=== PATIENT | male | born 1990 | race Caucasian/White ===

== ENCOUNTER 2019-03-14 18:49 | Emergency (ER) | payer SELFPAY ==
[~2019-03-14] VITALS: Ht 175.3 cm; Wt 200.0 kg
[2019-03-14 19:04] VITALS: BP 141/75
== END 2019-03-14 22:30 | disposition left against medical advice (07) ==
LOC: EMS 18:51
DX: R51 Headache (principal); Z53.21 Procedure and treatment not carried out due to patient leaving prior to being seen by health care provider

== ENCOUNTER 2019-03-31 08:54 | Emergency (ER) | payer MEDICAID ==
[~2019-03-31] VITALS: Ht 177.8 cm; Wt 77.3 kg
[2019-03-31] MEDS ORDERED: ESCI10TA PO (09:17)
[2019-03-31] MEDS ORDERED: GABA-531 PO (09:17)
[2019-03-31 10:21] VITALS: BP 129/66
== END 2019-03-31 10:27 | disposition home or self-care (01) ==
LOC: EMS 08:55
DX: R45.851 Suicidal ideations (principal); F15.10 Other stimulant abuse, uncomplicated; F32.9 Major depressive disorder, single episode, unspecified; F12.90 Cannabis use, unspecified, uncomplicated; F19.90 Other psychoactive substance use, unspecified, uncomplicated

== ENCOUNTER 2022-04-11 01:45 | Inpatient (IN) | payer MEDICAID, OTHER ==
[~2022-04-11] VITALS: Ht 175.3 cm; Wt 77.3 kg
[~2022-04-11 01:45] MED LIST: ESCI-8 PO; GABA-1181 PO
[2022-04-11] MEDS ORDERED: SODIUM CHLORIDE 0.9% 1,000 ML IV ONE (04:30)
[2022-04-11] MEDS ORDERED: ACETAMINOPHEN 325 MG TABLET PO PRN (05:30)
[2022-04-11] MEDS ORDERED: ONDANSETRON HCL 4 MG/2 ML VIAL IVP PRN (05:30)
[2022-04-11] MEDS: CefTRIAXone 1 GM/DEXTROSE 50 ML IV SCH (05:36)
[2022-04-11] MEDS: HEPARIN SODIUM,PORCINE 5,000 UNITS/ML VIAL SQ SCH ×3 (08:00→23:38)
[2022-04-11 08:52] LABS: COVID AG,FIA SOURCE NASOPHARYNGEAL
[2022-04-11 10:15] VITALS: BP 110/59
[2022-04-11] MEDS: RINGERS SOLUTION,LACTATED 1,000 ML IV SCH ×3 (11:37→23:38)
[2022-04-11] MEDS: ONDANSETRON HCL 4 MG/2 ML VIAL IVP PRN (16:15)
[2022-04-11] MEDS: LORazepam 2 MG/ML VIAL IVP PRN ×2 (16:16→21:35)
[2022-04-11 16:26] VITALS: BP 114/60
[2022-04-11 19:50] VITALS: BP 115/61
[2022-04-12 03:48] VITALS: BP 127/75
[2022-04-12] MEDS: CefTRIAXone 1 GM/DEXTROSE 50 ML IV SCH (05:59)
[2022-04-12 06:45] LABS: BASOPHILS % (AUTO) 0.1 % (0.0-2.0); EOSINOPHILS % (AUTO) 0.1 % (1.0-6.0); HEMATOCRIT 35.4 % (41-53); HEMOGLOBIN 12.2 g/dL (13.5-17.5); LYMPHOCYTES # (AUTO) 1.2 K/uL (1.0-4.8); LYMPHOCYTES % (AUTO) 11.7 % (22.0-44.0); MEAN CORPUSCULAR HEMOGLOBIN 27.5 pg (26.0-34.0); MEAN CORPUSCULAR HGB CONC 34.4 G/dL (31.0-37.0); MEAN CORPUSCULAR VOLUME 80 fL (80-100); MONOCYTES # (AUTO) 0.4 K/uL (0.1-1.0); MONOCYTES % (AUTO) 3.4 % (2.0-9.0); NEUTROPHILS # (AUTO) 8.7 K/uL (1.8-7.7); NEUTROPHILS % (AUTO) 84.7 % (40.0-70.0); PLATELET COUNT (AUTO) 307 K/uL (150-450); RED BLOOD CELL COUNT(AUTO) 4.44 MIL/uL (4.50-5.90); RED CELL DISTRIBUTION WIDTH 13.2 % (11.5-14.5)
[2022-04-12 06:58] LABS: ALANINE AMINOTRANSFERASE 20 U/L (12-78); ALBUMIN 2.5 g/dL (3.4-5.0); ALKALINE PHOSPHATASE 64 U/L (46-116); ANION GAP 12 mmol/L (8-16); ASPARTATE AMINOTRANSFERASE 14 U/L (15-37); BILIRUBIN,TOTAL 0.4 mg/dL (0.1-1.0); CALCIUM, TOTAL 8.6 mg/dL (8.8-10.5); CARBON DIOXIDE 24 mmol/L (22-29); CHLORIDE 99 mmol/L (98-107); CREATININE 0.47 mg/dL (0.60-1.30); GLUCOSE,RANDOM 99 mg/dL (70-110); POTASSIUM 3.1 mmol/L (3.5-5.1); SODIUM SERUM 135 mmol/L (136-145); TOTAL PROTEIN, SERUM 6.9 g/dL (6.4-8.2); UREA NITROGEN, BLOOD 12 mg/dL (7-18)
[2022-04-12 07:04] LABS: GLOMERULAR FILTR. RATE CALC > 60 mL/min (>60)
[2022-04-12] MEDS: HEPARIN SODIUM,PORCINE 5,000 UNITS/ML VIAL SQ SCH ×3 (08:00→23:25)
[2022-04-12 08:14] VITALS: BP 131/77
[2022-04-12] MEDS: RINGERS SOLUTION,LACTATED 1,000 ML IV SCH ×2 (14:11→23:25)
[2022-04-12] MEDS: LORazepam 2 MG/ML VIAL IVP PRN ×2 (14:30→21:29)
[2022-04-12 18:51] VITALS: BP 122/70
[2022-04-12 19:44] VITALS: BP 110/50
[2022-04-12] MEDS: ONDANSETRON HCL 4 MG/2 ML VIAL IVP PRN ×2 (21:12→21:29)
[2022-04-12] MEDS: DOXYCYCLINE HYCLATE 100 MG TABLET PO SCH (23:25)
[2022-04-13] MEDS: LORazepam 2 MG/ML VIAL IVP PRN ×2 (01:45→05:41)
[2022-04-13 04:00] VITALS: BP 123/66
[2022-04-13] MEDS: CefTRIAXone 1 GM/DEXTROSE 50 ML IV SCH (05:41)
[2022-04-13 06:36] LABS: BASOPHILS % (AUTO) 0.1 % (0.0-2.0); EOSINOPHILS % (AUTO) 0.1 % (1.0-6.0); HEMATOCRIT 35.4 % (41-53); HEMOGLOBIN 11.9 g/dL (13.5-17.5); LYMPHOCYTES # (AUTO) 1.9 K/uL (1.0-4.8); LYMPHOCYTES % (AUTO) 18.4 % (22.0-44.0); MEAN CORPUSCULAR HEMOGLOBIN 27.1 pg (26.0-34.0); MEAN CORPUSCULAR HGB CONC 33.6 G/dL (31.0-37.0); MEAN CORPUSCULAR VOLUME 81 fL (80-100); MONOCYTES # (AUTO) 0.4 K/uL (0.1-1.0); NEUTROPHILS # (AUTO) 7.8 K/uL (1.8-7.7); NEUTROPHILS % (AUTO) 77.4 % (40.0-70.0); PLATELET COUNT (AUTO) 366 K/uL (150-450); RED CELL DISTRIBUTION WIDTH 13.7 % (11.5-14.5)
[2022-04-13 06:54] LABS: ANION GAP 14 mmol/L (8-16); CARBON DIOXIDE 25 mmol/L (22-29); CHLORIDE 101 mmol/L (98-107); CREATININE 0.57 mg/dL (0.60-1.30); GLUCOSE,RANDOM 112 mg/dL (70-110); POTASSIUM 3.1 mmol/L (3.5-5.1); SODIUM SERUM 140 mmol/L (136-145); UREA NITROGEN, BLOOD 6 mg/dL (7-18)
[2022-04-13 07:14] LABS: GLOMERULAR FILTR. RATE CALC > 60 mL/min (>60)
[2022-04-13 07:39] VITALS: BP 123/68
[2022-04-13] MEDS: HEPARIN SODIUM,PORCINE 5,000 UNITS/ML VIAL SQ SCH (09:03)
[2022-04-13] MEDS: RINGERS SOLUTION,LACTATED 1,000 ML IV SCH (09:03)
[2022-04-13] MEDS: DOXYCYCLINE HYCLATE 100 MG TABLET PO SCH (09:12)
[2022-04-14 06:06] LABS: HIV 1-2 SCREEN 4TH GEN W/RFLX Preliminary Reactive (Non Reactive); HIV INTERPRETATION HIV-1 Positive; HIV-1 ANTIBODY(MULTISPOT) Reactive (Non Reactive); HIV-2 ANTIBODY(MULTISPOT) Non Reactive (Non Reactive)
== END 2022-04-13 11:15 | disposition left against medical advice (07) | DRG 501 ==
LOC: EDSTATUS 01:45 → EMS 01:50 → 6N 05:30
PROVIDERS: ADMIT Internal Medicine; ATTEND Internal Medicine
DX: N45.3 Epididymo-orchitis (principal); R65.10 Systemic inflammatory response syndrome (SIRS) of non-infectious origin without acute organ dysfunction; Z20.822 Contact with and (suspected) exposure to COVID-19; Z53.29 Procedure and treatment not carried out because of patient's decision for other reasons; N39.0 Urinary tract infection, site not specified; R36.9 Urethral discharge, unspecified; A64 Unspecified sexually transmitted disease; F32.A Depression, unspecified; Z72.0 Tobacco use
CPT/HCPCS: 76870; 80048; 80053; 85025; 86701; 86702; 87389; 87491; 87591; 99285; J0696; J1644; J2060; J2405; J7030; J7120